=== PATIENT | male | born 1960 | race Caucasian/White ===

== ENCOUNTER 2024-01-14 23:46 | Emergency (ER) | payer MEDICARE, SELFPAY ==
[2024-01-14 23:50] VITALS: BP 187/83; PULSE 126; RESP 20; TEMP 37.7; O2SAT 92
--- NOTE | 2024-01-14 23:55 | ECG_ITS ---
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 Measurements Intervals Hagerman Rate: 122 P: 71 NC: 159 QRS: 79 QRSD: 98 T: 73 QT: 302 QTc: 431 Interpretive Statements SINUS TACHYCARDIA WITH OCCASIONAL SUPRAVENTRICULAR PREMATURE COMPLEXES ANTEROSEPTAL MYOCARDIAL INFARCTION , OF INDETERMINATE AGE [40+ ms Q WAVE IN V1-V4] Compared to ECG 08/31/2019 19:40:46 Sinus rhythm no longer present Myocardial infarct finding still present Electronically Signed On 01-15-2024 15:46:00 TAXI PROPRIETOR by Roddy Mccord M.D. [email or web address]
[2024-01-15] VITALS (7 sets, daily range): BP systolic 144–171; BP diastolic 73–94; PULSE 110–117; RESP 18; O2SAT 89–95
--- NOTE | 2024-01-15 00:07 | XRR_ITS ---
PROCEDURE INFORMATION: Exam: XR Chest Exam date and time: 01/15/2024 12:11 AM Age: 63 years old Clinical indication: Cough and fever; Additional info: SOA, cough, fever TECHNIQUE: Imaging protocol: Radiologic exam of the chest. Views: 1 view. COMPARISON: CR XR chest 1V [id number] 08/31/2019 3:41 PM FINDINGS: Lungs: Visualized portions of the lungs are clear. Pleural spaces: Unremarkable. No pleural effusion. No pneumothorax. Heart/Mediastinum: Heart is within normal limits of size. Bones/joints: There are degenerative changes in the thoracic spine. XR/XR chest 1V [id number] IMPRESSION: No acute infiltrate.
--- NOTE | 2024-01-15 00:10 | PC.NURSE ---
Patients oxygen saturation dropped to 86% RA for several minutes after transfer from wheelchair to bed. Sats 90-93% while remaining upright and still. Dr Fraser notified.
--- NOTE | 2024-01-15 00:44 | ED_ITS ---
Documented by User: WHITNEY Marshall 01/15/24 01:21 HPI - SOB/Dyspnea 2 General: Chief Complaint: Shortness of Breath/Dyspnea Stated Complaint: SOB Time Seen by Provider: 01/15/24 00:06 Source: patient and family Mode of arrival: ambulatory Limitations: no limitations History of Present Illness: HPI Narrative: Patient presents emergency department today accompanied by his for evaluation treatment of chest tightness, dyspnea on exertion, and fever. Patient's is at upper respiratory symptoms for about a week. Patient states he started his symptoms soon after but feels his are more in his chest. Patient has a relatively nonproductive cough. He states he is coughing so hard that he is getting dizzy and lightheaded. He is typically seen at a [facility] primary care doctor in [place] but he is able to pull up my [facility]. Patient is on several medications for blood pressure as well as several different inhalers for what I assume is a COPD diagnosis. Patient also has diabetes and is on medication for his blood sugars. Patient states that they came in tonight because he was outside in his yard. When he tried to walk towards the house he became so out of breath he thought he was not going to make it. He had his inhaler with him which she states was the only thing that saved him . Patient has had nasal congestion. He has had ear pressure. Review of Systems 2 General: Reports: 10 or more systems reviewed and unremarkable except in HPI and below Physical Exam 2 Const: COMMON NORMALS: no acute distress, patient oriented x3 and alert O THER: Patient is pleasant, social. Answers his own history. HENMT: OTHER: TMs with fluid present bilaterally without erythema or purulent accumulation appreciated. Pharynx is mildly erythematous but without signs of exudate. Nasal passages are clear. Mucous membranes are moist. Eye: COMMON NORMALS: Equal, round and reactive pupils present, EOMs intact bilaterally and conjunctivae normal CONJUNCTIVA: Yes conjunctivae normal P UPIL: Yes Equal, round and reactive pupils present Lymph: LYMPHATIC: no lymphadenopathy noted Resp: OTHER: Increased effort of respiration. Patient with diffuse wheezing on expiration bilaterally. Patient's cough is extremely harsh and dry sounding. Cardio: COMMON NORMALS: regular rhythm RATE: tachycardic RHYTHM: regular rhythm GI: OTHER: Abdomen soft. Nontender on palpation. : COMMON NORMALS: Yes no CVA tenderness BLADDER/KIDNEY EXAM: Yes no CVA tenderness Back/Pelvis: COMMON NORMALS: no CVA tenderness, thoracic and lumbar spine normal to inspection and thoraco-lumbar ROM normal Extremity: COMMON NORMALS: normal to inspection, full ROM and no pedal edema Neuro: COMMON NORMALS: patient oriented x3 SENSORIUM/ORIENTATION: Yes alert Skin: COMMON NORMALS: no rashes or lesions noted and turgor normal GENERAL SKIN EXAM: no rashes or lesions noted and turgor normal Course 2 Vital Signs: Vital signs: Vital Signs Temperature 99.9 F H 01/14/24 23:50 Pulse Rate 110 H 01/15/24 01:47 Respiratory Rate 18 01/15/24 01:47 Blood Pressure 187/83 01/14/24 23:50 Pulse Oximetry 94 01/15/24 01:47 Oxygen Delivery Me thod Room Air 01/15/24 01:47 MDM - SOB/Dyspnea Medical Decision Making Patient presented to the emergency department [facility] for concerns of a severe episode of dyspnea on exertion. Patient allowed me to look at his [employer] patient portal and look through his active medications list. From them, I gather patient has COPD in addition to hypertension and type 2 diabetes. Patient has several inhalers listed in his chart but carries a rescue inhaler with him. He reported it did help with his symptoms. Patient has a very harsh cough and does have wheezing noted. He was ordered a DuoNeb treatment as well as IV Solu-Medrol. Chest x-ray was negative but at this time, lab work and swabs are still pending. Discussed the case with Dr. Fraser who received transfer of care at [facility]. Differential Diagnosis Likely acute exacerbation of chronic obstructive airways disease; Unlikely congestive heart failure, community acquired pneumonia or asthma with exacerbation Lab Data 01/15/24 00:54 01/15/24 00:54 Labs/Radiology: Radiology Impressions Chest X-Ray 01/15/24 00:07 IMPRESSION: No acute infiltrate. Laboratory Results WBC 10.24 10^3/uL (3.29-11.43) 01/15/24 00:54 RBC 4.65 10^6/uL (3.85-5.65) 01/15/24 00:54 Hgb 14.10 g/dL (11.27-16.99) 01/15/24 00:54 Hct 42.2 % (37-53) 01/15/24 00:54 MCV 90.8 fl (82-101) 01/15/24 00:54 MCH 30.3 pg (27-33) 01/15/24 00:54 MCHC 33.4 g/dL (30-55) 01/15/24 00:54 RDW 12.3 % (12.1-15.1) 01/15/24 00:54 Plt Count 253 10^3/cmm (157-399) 01/15/24 00:54 MPV 9.4 fL (7.4-10.4) 01/15/24 00:54 Neut % (Auto) 89.6 % 01/15/24 00:54 Lymph % (Auto) 4.0 % 01/15/24 00:54 Millard % (Auto) 5.0 % 01/15/24 00:54 Eos % (Auto) 0.7 % 01/15/24 00:54 Baso % (Auto) 0.4 % 01/15/24 00:54 Neut # (Auto) 9.18 10^3/uL (1.8-7.7) H 01/15/24 00:54 Lymph # (Auto) 0.4 10^3/uL (0.8-4.8) L 01/15/24 00:54 Millard # (Auto) 0.5 10^3/uL (0.2-0.9) 01/15/24 00:54 Eos # (Auto) 0.1 10^3/uL (0.0-0.8) 01/15/24 00:54 Baso # (Auto) 0.0 10^3/uL (0.0-0.1) 01/15/24 00:54 Nucleated RBC % (auto) 0 % 01/15/24 00:54 Nucleated RBCs # 0.0 /100WBC 01/15/24 00:54 Specimen Type Venous 01/15/24 01:07 Jose Alejandro Test Pos 01/15/24 01:07 VBG pH 7.40 (7.32-7.42) 01/15/24 01:07 VBG pCO2 43.6 mmHg (41-51) 01/15/24 01:07 VBG pO2 38.9 mmHg (25-40) 01/15/24 01:07 VBG HCO3 26.9 mmol/L (24-28) 01/15/24 01:07 VBG Base Excess 1.7 mmol/L (-3.0-3.0) 01/15/24 01:07 VBG Hematocrit 45.8 % (42-52) 01/15/24 01:07 O2 Delivery Device None 01/15/24 01:07 FiO2 21.0 % 01/15/24 01:07 Cleaner Operator ID [email or web address] 01/15/24 01:07 Sodium 134 mmol/L (136-145) L 01/15/24 00:54 Potassium 4.3 mmol/L (3.5-5.1) 01/15/24 00:54 Chloride 96 mmol/L (98-107) L 01/15/24 00:54 Carbon Dioxide 24 mmol/L (22-29) 01/15/24 00:54 Anion Gap 18.3 (5-19) 01/15/24 00:54 BUN 13 mg/dL (8-23) 01/15/24 00:54 Creatinine 0.9 mg/dL (0.7-1.2) 01/15/24 00:54 GFR Calculation 85.5 mL/min (90-130) L 01/15/24 00:54 Glucose 186 mg/dL (65-115) H 01/15/24 00:54 Calculated Osmolality 283 mOsm/kg (285-295) L 01/15/24 00:54 Calcium 9.2 mg/dL (8.5-10.5) 01/15/24 00:54 Total Bilirubin 0.4 mg/dL (0.15-1.2) 01/15/24 00:54 AST 26 U/L (0-40) 01/15/24 00:54 ALT 25 U/L (0-41) 01/15/24 00:54 Alkaline Phosphatase 98 U/L (40-130) 01/15/24 00:54 Troponin T Baseline 19 ng/L (0-15) H 01/15/24 00:54 Total Protein 7.9 g/dL (6.6-8.7) 01/15/24 00:54 Albumin 4.7 g/dL (3.5-5.2) 01/15/24 00:54 Globulin 3.2 g/dL (1.3-4.6) 01/15/24 00:54 Urine Color Yellow (Yellow) 01/15/24 01:17 Urine Appearance Clear (CLEAR) 01/15/24 01:17 Urine pH 5 (5-7) 01/15/24 01:17 Ur Specific [place] 1.015 (1.005-1.030) 01/15/24 01:17 Urine Protein 1+ (Negative) H 01/15/24 01:17 Urine Glucose (UA) 2+ (Normal) H 01/15/24 01:17 Urine Ketones 1+ (Negative) H 01/15/24 01:17 Urine Blood 2+ (Negative) H 01/15/24 01:17 Urine Nitrate Negative (Negative) 01/15/24 01:17 Urine Bilirubin Neg (Negative) 01/15/24 01:17 Urine Urobilinogen Neg mg/dL (Negative) 01/15/24 01:17 Ur Leukocyte Esterase Negative (Negative) 01/15/24 01:17 Urine RBC 0-4 /hpf (0-2) H 01/15/24 01:17 Urine WBC None /hpf (0-5) 01/15/24 01:17 Ur Squamous Epith Cells None /hpf (0-5) 01/15/24 01:17 Amorphous Sediment Not Reportable 01/15/24 01:17 Urine Bacteria Trace /hpf (NONE) 01/15/24 01:17 Urine Mucus 2+ /hpf 01/15/24 01:17 Influenza A (H1) PCR Not detected (NOT DETECT) 01/15/24 00:53 Influ A (H1/09) PCR Detected (NOT DETECT) A 01/15/24 00:53 Influenza A (H3) PCR Not detected (NOT DETECT) 01/15/24 00:53 Influenza Type A (PCR) Detected (NOT DETECT) A 01/15/24 00:53 Influenza Type B (PCR) Not detected (NOT DETECT) 01/15/24 00:53 SARS-CoV-2 Ag (Rapid) Negative (Negative) 01/15/24 00:53 All radiology interpretation(s) finalized by discharge Discharge Plan Discharge Patient Disposition: Home Clinical Impression: Influenza A, Acute dyspnea Condition: Stable Discharge Orders: Discharge ED (Routine); Ordered 01/15/24 Ordered By: Thomas Fraser Referrals: Khang Cummings MD [Primary Care Provider] - Discharge Diet: Usual diet Discharge Activity: Resume usual activity Patient Instructions: Opioid Safety, Pain Management Activity Restrictions/Additional Instructions: Activity Restrictions/Additional Instructions: Thank you for choosing [facility] for your healthcare needs today. Please realize that you were seen in the Emergency Department and that we are providing you with an emergency medical screening exam and this may not be a complete and all inclusive of all the testing and or medical work-up that you may need to determine your ailment or severity of your illness. It is very important that you follow-up as instructed with your Primary care provider or Specialist for additional evaluation and to discuss your medical treatment plan. You may return to the Emergency Department should you have concerns or if your condition changes or worsens in any way. Coding Level of Care Code ED Commissary Officer for Chg Fwd Documented by User: Thomas Fraser MD 01/15/24 02:57 HPI - SOB/Dyspnea 2 General: Chief Complaint: Shortness of Breath/Dyspnea Stated Complaint: SOB Time Seen by Provider: 01/15/24 00:06 Course 2 Vital Signs: Vital signs: Vital Signs Temperature 99.9 F H 01/14/24 23:50 Pulse Rate 110 H 01/15/24 01:47 Respiratory Rate 18 01/15/24 01:47 Blood Pressure 187/83 01/14/24 23:50 Pulse Oximetry 94 01/15/24 01:47 Oxygen Delivery Me thod Room Air 01/15/24 01:47 MDM - SOB/Dyspnea Medical Decision Making [facility] for concerns of a severe episode of dyspnea on exertion. Patient allowed me to look at his [employer] patient portal and look through his active medications list. From them, I gather patient has COPD in addition to hypertension and type 2 diabetes. Patient has several inhalers listed in his chart but carries a rescue inhaler with him. He reported it did help with his symptoms. Patient has a very harsh cough and does have wheezing noted. He was ordered a DuoNeb treatment as well as IV Solu-Medrol. Chest x-ray was negative but at this time, lab work and swabs are still pending. Discussed the case with Dr. Fraser who received transfer of care at 0115. I discussed the patient's history of present illness, physical exam findings, pertinent labs, pertinent radiographic exams and plan of care with the midlevel provider. I did personally have a [id number] evaluation and discussion with the patient regarding the plan of care and the need for follow-up and additional evaluation. Medical Records I reviewed the patient's medical records. Lab Data I reviewed the patient's lab results. 01/15/24 00:54 01/15/24 00:54 Labs/Radiology: Radiology Impressions Chest X-Ray 01/15/24 00:07 IMPRESSION: No acute infiltrate. Laboratory Results WBC 10.24 10^3/uL (3.29-11.43) 01/15/24 00:54 RBC 4.65 10^6/uL (3.85-5.65) 01/15/24 00:54 Hgb 14.10 g/dL (11.27-16.99) 01/15/24 00:54 Hct 42.2 % (37-53) 01/15/24 00:54 MCV 90.8 fl (82-101) 01/15/24 00:54 MCH 30.3 pg (27-33) 01/15/24 00:54 MCHC 33.4 g/dL (30-55) 01/15/24 00:54 RDW 12.3 % (12.1-15.1) 01/15/24 00:54 Plt Count 253 10^3/cmm (157-399) 01/15/24 00:54 MPV 9.4 fL (7.4-10.4) 01/15/24 00:54 Neut % (Auto) 89.6 % 01/15/24 00:54 Lymph % (Auto) 4.0 % 01/15/24 00:54 Millard % (Auto) 5.0 % 01/15/24 00:54 Eos % (Auto) 0.7 % 01/15/24 00:54 Baso % (Auto) 0.4 % 01/15/24 00:54 Neut # (Auto) 9.18 10^3/uL (1.8-7.7) H 01/15/24 00:54 Lymph # (Auto) 0.4 10^3/uL (0.8-4.8) L 01/15/24 00:54 Millard # (Auto) 0.5 10^3/uL (0.2-0.9) 01/15/24 00:54 Eos # (Auto) 0.1 10^3/uL (0.0-0.8) 01/15/24 00:54 Baso # (Auto) 0.0 10^3/uL (0.0-0.1) 01/15/24 00:54 Nucleated RBC % (auto) 0 % 01/15/24 00:54 Nucleated RBCs # 0.0 /100WBC 01/15/24 00:54 Specimen Type Venous 01/15/24 01:07 Jose Alejandro Test Pos 01/15/24 01:07 VBG pH 7.40 (7.32-7.42) 01/15/24 01:07 VBG pCO2 43.6 mmHg (41-51) 01/15/24 01:07 VBG pO2 38.9 mmHg (25-40) 01/15/24 01:07 VBG HCO3 26.9 mmol/L (24-28) 01/15/24 01:07 VBG Base Excess 1.7 mmol/L (-3.0-3.0) 01/15/24 01:07 VBG Hematocrit 45.8 % (42-52) 01/15/24 01:07 O2 Delivery Device None 01/15/24 01:07 FiO2 21.0 % 01/15/24 01:07 Cleaner Operator ID [email or web address] 01/15/24 01:07 Sodium 134 mmol/L (136-145) L 01/15/24 00:54 Potassium 4.3 mmol/L (3.5-5.1) 01/15/24 00:54 Chloride 96 mmol/L (98-107) L 01/15/24 00:54 Carbon Dioxide 24 mmol/L (22-29) 01/15/24 00:54 Anion Gap 18.3 (5-19) 01/15/24 00:54 BUN 13 mg/dL (8-23) 01/15/24 00:54 Creatinine 0.9 mg/dL (0.7-1.2) 01/15/24 00:54 GFR Calculation 85.5 mL/min (90-130) L 01/15/24 00:54 Glucose 186 mg/dL (65-115) H 01/15/24 00:54 Calculated Osmolality 283 mOsm/kg (285-295) L 01/15/24 00:54 Calcium 9.2 mg/dL (8.5-10.5) 01/15/24 00:54 Total Bilirubin 0.4 mg/dL (0.15-1.2) 01/15/24 00:54 AST 26 U/L (0-40) 01/15/24 00:54 ALT 25 U/L (0-41) 01/15/24 00:54 Alkaline Phosphatase 98 U/L (40-130) 01/15/24 00:54 Troponin T Baseline 19 ng/L (0-15) H 01/15/24 00:54 Total Protein 7.9 g/dL (6.6-8.7) 01/15/24 00:54 Albumin 4.7 g/dL (3.5-5.2) 01/15/24 00:54 Globulin 3.2 g/dL (1.3-4.6) 01/15/24 00:54 Urine Color Yellow (Yellow) 01/15/24 01:17 Urine Appearance Clear (CLEAR) 01/15/24 01:17 Urine pH 5 (5-7) 01/15/24 01:17 Ur Specific [place] 1.015 (1.005-1.030) 01/15/24 01:17 Urine Protein 1+ (Negative) H 01/15/24 01:17 Urine Glucose (UA) 2+ (Normal) H 01/15/24 01:17 Urine Ketones 1+ (Negative) H 01/15/24 01:17 Urine Blood 2+ (Negative) H 01/15/24 01:17 Urine Nitrate Negative (Negative) 01/15/24 01:17 Urine Bilirubin Neg (Negative) 01/15/24 01:17 Urine Urobilinogen Neg mg/dL (Negative) 01/15/24 01:17 Ur Leukocyte Esterase Negative (Negative) 01/15/24 01:17 Urine RBC 0-4 /hpf (0-2) H 01/15/24 01:17 Urine WBC None /hpf (0-5) 01/15/24 01:17 Ur Squamous Epith Cells None /hpf (0-5) 01/15/24 01:17 Amorphous Sediment Not Reportable 01/15/24 01:17 Urine Bacteria Trace /hpf (NONE) 01/15/24 01:17 Urine Mucus 2+ /hpf 01/15/24 01:17 Influenza A (H1) PCR Not detected (NOT DETECT) 01/15/24 00:53 Influ A (H1/09) PCR Detected (NOT DETECT) A 01/15/24 00:53 Influenza A (H3) PCR Not detected (NOT DETECT) 01/15/24 00:53 Influenza Type A (PCR) Detected (NOT DETECT) A 01/15/24 00:53 Influenza Type B (PCR) Not detected (NOT DETECT) 01/15/24 00:53 SARS-CoV-2 Ag (Rapid) Negative (Negative) 01/15/24 00:53 Discharge Plan Discharge Patient Disposition: Home Clinical Impression: Influenza A, Acute dyspnea Condition: Stable Discharge Orders: Discharge ED (Routine); Ordered 01/15/24 Ordered By: Thomas Fraser Referrals: Khang Cummings MD [Primary Care Provider] - Discharge Diet: Usual diet Discharge Activity: Resume usual activity Patient Instructions: Opioid Safety, Pain Management Activity Restrictions/Additional Instructions: Activity Restrictions/Additional Instructions: Thank you for choosing [facility] for your healthcare needs today. Please realize that you were seen in the Emergency Department and that we are providing you with an emergency medical screening exam and this may not be a complete and all inclusive of all the testing and or medical work-up that you may need to determine your ailment or severity of your illness. It is very important that you follow-up as instructed with your Primary care provider or Specialist for additional evaluation and to discuss your medical treatment plan. You may return to the Emergency Department should you have concerns or if your condition changes or worsens in any way. Coding Level of Care Code ED Commissary Officer for Nasra Mallory
[2024-01-15] MEDS: methylPREDNISolone sod succ 125 MG in water for injection-sterile 2 ML 24 MG IVP (01:00)
[2024-01-15 01:01] LABS: Basophils % 0.4 %; Eosinophils # 0.1 10^3/uL (0.0-0.8); Eosinophils % 0.7 %; Hematocrit 42.2 % (37-53); Lymphocytes # 0.4 10^3/uL (0.8-4.8); Mean Corpuscular HGB Conc 33.4 g/dL (30-55); Mean Corpuscular Hemoglobin 30.3 pg (27-33); Mean Corpuscular Volume 90.8 fl (82-101); Mean Platelet Volume 9.4 fL (7.4-10.4); Monocytes # 0.5 10^3/uL (0.2-0.9); Neutrophils # 9.18 10^3/uL (1.8-7.7); Neutrophils % 89.6 %; Nucleated Red Blood Cells % 0 %; Platelet Count 253 10^3/cmm (157-399); Red Blood Count 4.65 10^6/uL (3.85-5.65); Red Cell Distribution Width 12.3 % (12.1-15.1); White Blood Count 10.24 10^3/uL (3.29-11.43)
[2024-01-15 01:13] LABS: Base Excess VBG 1.7 mmol/L (-3.0-3.0); Blood Gas Allen Test Pos; Blood Gas Sample Type Venous; HCO3 VBG 26.9 mmol/L (24-28); PCO2 VBG 43.6 mmHg (41-51); PO2 VBG 38.9 mmHg (25-40); Venous Blood Gas Hematocrit 45.8 % (42-52)
[2024-01-15 01:20] LABS: Alanine Aminotransferase 25 U/L (0-41); Albumin Level 4.7 g/dL (3.5-5.2); Alkaline Phosphatase 98 U/L (40-130); Anion Gap 18.3 (5-19); Aspartate Amino Transferase 26 U/L (0-40); Blood Urea Nitrogen 13 mg/dL (8-23); Calcium 9.2 mg/dL (8.5-10.5); Carbon Dioxide 24 mmol/L (22-29); Chloride 96 mmol/L (98-107); Globulin 3.2 g/dL (1.3-4.6); Glomerular Filtration Rate 85.5 mL/min (90-130); Glucose 186 mg/dL (65-115); Osmolality Calculated 283 mOsm/kg (285-295); Potassium 4.3 mmol/L (3.5-5.1); Sodium 134 mmol/L (136-145); Total Bilirubin 0.4 mg/dL (0.15-1.2); Total Protein 7.9 g/dL (6.6-8.7)
[2024-01-15 01:24] LABS: SARS Covid-2 Antigen Negative (Negative)
[2024-01-15 01:32] LABS: Troponin(5th) Baseline 19 ng/L (0-15)
[2024-01-15 01:33] LABS: Add Urine Microscopic? YES; Bilirubin Urine Neg (Negative); Blood Urine 2+ (Negative); Glucose Urine UA 2+ (Normal); Ketones Urine 1+ (Negative); Leukocyte Esterase Urine Negative (Negative); Nitrate Urine Negative (Negative); Protein Urine 1+ (Negative); Specific Gravity, Urine 1.015 (1.005-1.030); Urine Appearance Clear (CLEAR); Urine Color Yellow (Yellow); Urobilinogen Urine Neg (Negative); pH Urine 5 (5-7)
[2024-01-15 01:34] LABS: Add Urine Culture? No; Bacteria Urine TRACE /hpf; Mucus Urine 2+ /hpf; RBC Urine 0-4 /hpf (0-2)
[2024-01-15] MEDS: ipratropium-albuterol 3 mL Neb INHALATION (01:43)
[2024-01-15 02:44] LABS: Influenza A Detected (NOT DETECT); Influenza A H1 Not Detected (NOT DETECT); Influenza A H1-2009 Detected (NOT DETECT); Influenza A H3 Not Detected (NOT DETECT); Influenza B Not Detected (NOT DETECT)
[2024-01-15 02:52] LABS: Results from Genmark
[2024-01-15 03:32] LABS: Troponin 5 2HR 20.17 ng/L (0-15); Troponin 5 2HR Delta 1.17 ABS# (0-10)
[2024-01-15 12:38] LABS: Blood Gas Sample Site VENOUS
== END 2024-01-15 03:21 | disposition home or self-care (01) ==
PROVIDERS: Emergency Provider Physician Assistant; PCP Family Medicine
DX: J10.1 Influenza due to other identified influenza virus with other respiratory manifestations (principal); Z11.52 Encounter for screening for COVID-19; R06.00 Dyspnea, unspecified
CPT/HCPCS: 36415; 71045; 80053; 81001; 82803; 84484; 85025; 87426; 87631; 93005; 94640; 96374; 99285; J2930